=== PATIENT | female | born 1960 | race Caucasian/White ===

== ENCOUNTER 2018-09-02 16:34 | Outpatient (CLI) | payer OTHER ==
--- NOTE | 2018-09-03 09:11 | XRAY Report ---
Reason: KNEE PAIN, RIGHT Procedure Date: 09/02/2018 Accession Number: [id number] / [id number] Procedure: XR - Knee 3 View RT CPT Code: FULL RESULT: EXAM: RIGHT KNEE RADIOGRAPHY EXAM DATE: 09/02/2018 05:12 PM. CLINICAL HISTORY: Right knee pain. COMPARISON: None. TECHNIQUE: 3 views. FINDINGS: Bones: Normal. No fractures or bone lesions. Joints: Mild marginal spurring is seen primarily in the patellofemoral compartment. Joint space narrowing is suggested in the medial compartment. Alignment is otherwise preserved with no significant effusion. Soft Tissues: Normal. No soft tissue swelling. 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 No acute findings. RADIA
== END 2018-09-02 16:35 | disposition home or self-care (01) ==
LOC: DI 16:34
PROVIDERS: ATTEND Family Medicine
DX: M17.11 Unilateral primary osteoarthritis, right knee (principal)

== ENCOUNTER 2020-08-16 08:42 | Outpatient (CLI) | payer OTHER ==
--- NOTE | 2020-08-16 16:50 | XRAY Report ---
PROCEDURE: Ribs w/PA Chest RT INDICATIONS: RIGHT RIB PAIN AFTER FALL TECHNIQUE: 2 views of the right ribs were acquired, along with a single view chest. COMPARISON: 02/16/2017. FINDINGS: Surgical changes and devices: None. Bones and chest wall: No displaced rib fracture identified. No suspicious bony lesions. Overlying s oft tissues appear unremarkable. Lungs and pleura: No pleural effusions or pneumothorax. Lungs appear clear. Mediastinum: Mediastinal contours appear normal. Heart size is normal. IMPRESSION: 1. No displaced rib fracture identified. Reviewed by: Sameer Tripp MD on 08/16/2020 4:49 PM PST Approved by: Sameer Tripp MD on 08/16/2020 4:49 PM PST Station ID: [id number]
== END 2020-08-16 23:59 | disposition home or self-care (01) ==
LOC: DI.N 08:42
PROVIDERS: ATTEND Physician Assistant Medical
DX: S20.211A Contusion of right front wall of thorax, initial encounter (principal)